=== PATIENT | male | born 1980 | race African-American/Black ===

== ENCOUNTER 2017-12-29 23:26 | Emergency (ER) | payer SELFPAY ==
[~2017-12-29] VITALS: Ht 167.6 cm; Wt 81.6 kg
[2017-12-30] MEDS: methylPREDNISolone SOD SUCC PF 125 MG/2 ML VIAL. IV ONE (00:24)
--- NOTE | 2017-12-30 00:25 | PHYS DOC ---
Past Medical History Past Medical History: Asthma Past Surgical History: No Surgical History Alcohol Use: None Drug Use: Marijuana Adult General Chief Complaint Chief Complaint: SHORTNESS OF BREATH HPI HPI 37-year-old male presents to the emergency department with acute on chronic dyspnea, wheezing, nonproductive cough, nasal congestion. He denies any pain in his chest or any pleuritic pain. He states that he has a long history of asthma and this is identical to previous exacerbations. States that he has been borrowing friend's albuterol inhalers and these give him some temporary relief. Review of Systems Review of Systems Constitutional: Denies fever or chills Eyes: Denies change in visual acuity, redness, or eye pain Cardiovascular: No additional information not addressed in HPI GI: Denies abdominal pain, nausea, vomiting, bloody stools or diarrhea : Denies dysuria or hematuria Musculoskeletal: Denies back pain or joint pain Integument: Denies rash or skin lesions Neurologic: Denies headache, focal weakness or sensory changes Endocrine: Denies polyuria or polydipsia All other systems were reviewed and found to be within normal limits, except as documented in this note. Current Medications Current Medications Current Medications Medications (Trade) Dose Ordered Sig/Darnell Start Time Stop Time Status Last Admin Dose Admin Albuterol/ Ipratropium (Duoneb) 3 ml 1X ONCE 12/30/17 00:30 12/30/17 00:31 DC 12/30/17 00:31 3 ML Methylprednisolone Sodium Succinate (SOLU-Medrol 125MG VIAL) 125 mg 1X ONCE 18 00:30 12/30/17 00:31 DC 12/30/17 00:24 125 MG Allergies Allergies Allergies Coded Allergies Type Severity Reaction Last Updated Verified No Known Drug Allergies 12/29/17 No Physical Exam Physical Exam GENERAL: Awake, alert, well appearing, nontoxic, no acute distress HEAD/NECK/EYES: Normocephalic, Neck supple, PERRL ENT Airway patent, mucous membranes moist RESP: Bilateral inspiratory and expiratory wheezing, no retractions CV: Regular rhythm, normal perfusion ABD/GI: Soft, non-tender, no guarding BACK: Inspection NL EXT: Neurovascularly intact, no deformities , no venous tenderness SKIN: Warm, dry NEURO: Oriented X3, normal speech, no motor deficits, no sensory deficits, CN II - XII intact PSYCH: Cooperative, appropriate affect Current Patient Data Vital Signs Vital Signs Date Time Temp Pulse Resp B/P (MAP) Pulse Ox O2 Delivery O2 Flow Rate FiO2 12/30/17 00:20 96 Room Air 12/29/17 23:45 97.1 128 24 212/124 (153) 97.1 Lab Values Laboratory Tests Test 12/30/17 00:01 White Blood Count 10.5 x10^3/uL (4.0-11.0) Red Blood Count 5.01 x10^6/uL (4.30-5.70) Hemoglobin 14.6 g/dL (13.0-17.5) Hematocrit 42.1 % (39.0-53.0) Mean Corpuscular Volume 84 fL (79-100) Mean Corpuscular Hemoglobin 29 pg (25-35) Mean Corpuscular Hemoglobin Concent 35 g/dL (31-37) Red Cell Distribution Width 13.3 % (11.5-14.5) Platelet Count 423 x10^3/uL (140-400) H Neutrophils (%) (Auto) 66 % (31-73) Lymphocytes (%) (Auto) 22 % (24-48) L Monocytes (%) (Auto) 6 % (0-9) Eosinophils (%) (Auto) 5 % (0-3) H Basophils (%) (Auto) 1 % (0-3) Neutrophils # (Auto) 7.0 x10^3uL (1.8-7.7) Lymphocytes # (Auto) 2.3 x10^3/uL (1.0-4.8) Monocytes # (Auto) 0.6 x10^3/uL (0.0-1.1) Eosinophils # (Auto) 0.6 x10^3/uL (0.0-0.7) Basophils # (Auto) 0.1 x10^3/uL (0.0-0.2) Sodium Level 144 mmol/L (136-145) Potassium Level 3.5 mmol/L (3.5-5.1) Chloride Level 103 mmol/L (98-107) Carbon Dioxide Level 32 mmol/L (21-32) Anion Gap 9 (6-14) Blood Urea Nitrogen 3 mg/dL (8-26) L Creatinine 1.0 mg/dL (0.7-1.3) Estimated GFR (Cockcroft-Gault) 102.3 BUN/Creatinine Ratio 3 (6-20) L Glucose Level 111 mg/dL (70-99) H Calcium Level 9.3 mg/dL (8.5-10.1) Total Bilirubin 0.3 mg/dL (0.2-1.0) Aspartate Amino Transferase (AST) 35 U/L (15-37) Alanine Aminotransferase (ALT) 63 U/L (16-63) Alkaline Phosphatase 125 U/L (46-116) H KQ-Ftu-O-Type Natriuretic Peptide 44 pg/mL (0-124) Total Protein 8.7 g/dL (6.4-8.2) H Albumin 4.5 g/dL (3.4-5.0) Albumin/Globulin Ratio 1.1 (1.0-1.7) Laboratory Tests 12/30/17 00:01 Laboratory Tests 12/30/17 00:01 EKG EKG [] Radiology/Procedures Radiology/Procedures []1:15am. AP chest x-ray interpreted by me reveals no acute coronary process, no confluent infiltrates, no pneumothorax. Official radiology interpretation to follow. 1:18 AM. Patient notes, no acute distress, improved. Stable for discharge. Impressions: Asthma exacerbation Course & Med Decision Making Course & Med Decision Making Pertinent Labs and Imaging studies reviewed. (See chart for details) []Ddx includes but not limited to: Acute asthma exacerbation, bronchospasm, allergies, congestive heart failure, pneumonia, pneumothorax, doubt pulmonary embolus (symptoms are acute on chronic, similar to previous, denies unilateral leg swelling/hemoptysis/hormone use/VTE history/venous stasis) Elevated blood pressure likely secondary to patient lying on the cuff. We'll continue to reassess blood pressure. No evidence of end organ damage on lab results. Dragon Disclaimer Dragon Disclaimer This electronic medical record was generated, in whole or in part, using a voice recognition dictation system. Departure Departure Impression: Primary Impression: Acute asthma exacerbation Additional Impression: Elevated blood pressure reading without diagnosis of hypertension Disposition: HOME, SELF-CARE Condition: STABLE Referrals: UNKNOWN PCP NAME (PCP) Patient Instructions: Asthma, Acute Bronchospasm Additional Instructions: SEE [facility] DOCTOR LIST PROVIDED AND SEE PRIMARY DOCTOR WITHIN THE NEXT 14 DAYS FOR BLOOD PRESSURE RECHECK. Problem Qualifiers EMI MARISCAL DO Dec 30, 2017 00:25
[2017-12-30] MEDS: IPRATRPIUM/ALBUTEROL 0.5/2.5MG 3 ML NEBU. NEB ONE (00:31)
[2017-12-30 00:33] LABS: BASO # 0.1 x10^3/uL (0.0-0.2); BASO % 1 % (0-3); EOS # 0.6 x10^3/uL (0.0-0.7); EOS % 5 % (0-3); HEMATOCRIT 42.1 % (39.0-53.0); HEMOGLOBIN 14.6 g/dL (13.0-17.5); LYMPH # 2.3 x10^3/uL (1.0-4.8); LYMPH % 22 % (24-48); MEAN CORPUSCULAR HEMOGLOBIN 29 pg (25-35); MEAN CORPUSCULAR HGB CONC 35 g/dL (31-37); MEAN CORPUSCULAR VOLUME 84 fL (79-100); MONO # 0.6 x10^3/uL (0.0-1.1); MONO % 6 % (0-9); NEUT % 66 % (31-73); PLATELET COUNT 423 x10^3/uL (140-400); RED BLOOD COUNT 5.01 x10^6/uL (4.30-5.70); RED CELL DISTRIBUTION WIDTH 13.3 % (11.5-14.5); WHITE BLOOD COUNT 10.5 x10^3/uL (4.0-11.0)
[2017-12-30 00:40] LABS: CALCIUM 9.3 mg/dL (8.5-10.1); GFR 102.3; POTASSIUM 3.5 mmol/L (3.5-5.1)
[2017-12-30 00:46] LABS: ALBUMIN 4.5 g/dL (3.4-5.0); ALBUMIN/GLOBULIN RATIO 1.1 (1.0-1.7); TOTAL BILIRUBIN 0.3 mg/dL (0.2-1.0); TOTAL PROTEIN 8.7 g/dL (6.4-8.2)
[2017-12-30] MEDS ORDERED: PROVENTIL HFA6.7 GM IH (01:22)
[2017-12-30] MEDS ORDERED: PRED50TA PO (01:22)
[2017-12-30 02:14] VITALS: BP 183/86
--- NOTE | 2017-12-30 08:13 | RAD ---
Chest radiograph 12/30/2017 12:26 AM INDICATION: Shortness of air, asthma COMPARISON: January 24, 2010 TECHNIQUE: Portable upright frontal view of the chest is provided. FINDINGS: The cardiomediastinal silhouette is within normal limits. There are no pleural effusions. There is no pulmonary vascular congestion. There is no pneumothorax. The lungs are clear. No significant osseous abnormality is identified. IMPRESSION: No acute cardiopulmonary process. Electronically signed by: Aleksandra Baca MD (12/30/2017 8:09 AM) [id number]
== END 2017-12-30 02:14 | disposition home or self-care (01) ==
LOC: ER 23:26
DX: J45.901 Unspecified asthma with (acute) exacerbation (principal); R03.0 Elevated blood-pressure reading, without diagnosis of hypertension
CPT/HCPCS: 36415; 71045; 80053; 83880; 85025; 94640; 96374; 99285; J2930; J7620